=== PATIENT | female | born 1995 | race African-American/Black ===

== ENCOUNTER 2017-06-21 19:28 | Emergency (ER) | payer OTHER, MEDICAID ==
[2017-06-21] MEDS: cefTRIAXone SOD 250 MG VIAL (J0696) IM (21:04)
[2017-06-21] MEDS: AZITHROMYCIN 250 MG TAB PO (21:05)
[2017-06-21 21:08] LABS: CONTROL LINE UCG INT CTR LINE PRESENT; URINE PREG TEST NEGATIVE (NEGATIVE)
[2017-06-21 21:14] LABS: KETONE, URINE AUTO RFX NEGATIVE (NEGATIVE); LEUKOCYTE ESTERASE UR AUTO RFX NEGATIVE (NEGATIVE); MUCUS, URINE RFX LARGE (NEGATIVE); NITRITE, URINE AUTO RFX NEGATIVE (NEGATIVE); RBC, URINE AUTO RFX 1 /HPF (0-3); SPECIFIC GRAVITY UR AUTO RFX 1.025 (1.002-1.035); SQUAM EPITHELIAL CELL UR AURFX 8 /HPF (0-6); WBC, URINE AUTO RFX 1 /HPF (0-3)
[2017-06-21 22:39] LABS: CHLAMYDIA DNA AMPLIFICATION NEGATIVE (NEGATIVE); GC DNA AMPLIFICATION NEGATIVE (NEGATIVE)
== END 2017-06-21 21:45 | disposition home or self-care (01) ==
LOC: M ED 19:28
DX: R10.2 Pelvic and perineal pain (principal); Z20.2 Contact with and (suspected) exposure to infections with a predominantly sexual mode of transmission
CPT/HCPCS: J0696